=== PATIENT | female | born 1975 | race American Indian/Alaskan Native ===

== ENCOUNTER 2018-01-18 04:11 | Emergency (ER) | payer SELFPAY ==
--- NOTE | 2018-01-18 05:38 | Cat Scan Report ---
FINAL REPORT EXAM: CT HEAD/BRAIN WO CON HISTORY: headache s/p injury TECHNIQUE: CT imaging acquired through the head without intravenous contrast. Transaxial reformations are provided. PRIORS: None. FINDINGS: The ventricles, cisterns and sulci are normal. No intraparenchymal or extra-axial mass, hemorrhage, or mass effect. Munoz and white-matter differentiation is normal. Normal spherical shape of the globes. Paranasal sinuses and mastoid air cells are clear. No skull or facial fracture visualized. IMPRESSION: No acute intracranial abnormality.
[2018-01-18] MEDS ORDERED: TORADOL IM ONE (07:27)
--- NOTE | 2018-01-18 07:29 | Emergency Department Report ---
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 She states that she fell. She said they took her to the clinic at her job site and gave her some pain medication but she still having headache and she would like to be checked out. She is reporting headache to the back of her head. Denies any loss of consciousness. Denies any restriction in movement to her right shoulder but reports she is having pain right shoulder 6 out of 10 in headache 8 out of 10. She is also complaining there is a small cut to the back of her scalp. Denies any dizziness , nausea or vomiting, blurred vision. Timing/Duration: 24 hours, constant, waxing and waning Quality: severe, achy, throbbing Head Injury Location: occipital, other (right shoulder) Recent Head Trauma: occasional headaches Modifying Factors: improves with: rest Associated Symptoms: other (right shoulder pain). denies: confusion, fatigue, facial pain, fever/chills, flushing, loss of consciousness, nausea/vomiting, nasal congestion, nasal drainage, numbness in legs/feet, rash, seizures, sinus infection, stiff neck, vision changes, weakness Allergies/Adverse Reactions: Allergies No Known Allergies Allergy (Unverified 10/25/15 08:59) Home Medications: Ambulatory Orders Amoxicillin [Trimox CAP] 500 mg PO Q12HR #20 capsule 10/25/15 Brompheniramine/Pseudoephed/Dm [Bromfed Dm Cough Syrup] 10 ml PO Q4HR #120 ml Acetaminophen/Codeine [Tylenol /Codeine # 3 tab] 1 tab PO Q6H PRN #12 tab Ibuprofen [Motrin] 600 mg PO Q8H PRN #15 tablet 01/18/18 ED Review of Systems ROS: Stated complaint: HEAD PAIN Other details as noted in HPI Constitutional: denies: chills, fever Eyes: denies: vision change ENT: denies: epistaxis Respiratory: denies: cough, shortness of breath, SOB with exertion, SOB at rest , stridor, wheezing Cardiovascular: denies: chest pain, palpitations, syncope Gastrointestinal: denies: abdominal pain, nausea, vomiting, diarrhea Musculoskeletal: denies: back pain, arthralgia Skin: other (cut to the back of her head). denies: rash, lesions Neurological: denies: headache, numbness, paresthesias, abnormal gait, vertigo ED Past Medical Hx - Past Medical History Previous Medical History?: Yes Additional medical history: heart murmur, Vaginal delivery x 3 - Surgical History Past Surgical History?: No - Family History Family history: hypertension - Social History Smoking Status: Never Smoker Substance Use Type: None - Medications Home Medications: Home Medications Medication Instructions Recorded Confirmed Last Taken Type Amoxicillin [Trimox CAP] 500 mg PO Q12HR #20 capsule 10/25/15 Unknown Rx Brompheniramine/Pseudoephed/Dm 10 ml PO Q4HR #120 ml 10/25/15 Unknown Rx [Bromfed Dm Cough Syrup] Acetaminophen/Codeine [Tylenol 1 tab PO Q6H PRN #12 tab 01/18/18 Unknown Rx /Codeine # 3 tab] Ibuprofen [Motrin] 600 mg PO Q8H PRN #15 tablet 01/18/18 Unknown Rx ED Physical Exam - General Limitations: No Limitations General appearance: alert, in no apparent distress - Head Head exam: Present: atraumatic, normocephalic, normal inspection - Expanded Head Exam Expanded Head exam: Present: abrasion (occipital scalp). Absent: laceration, contusion, hematoma, racoon eyes, connelly's sign, general tenderness, tenderness of temporal artery, CSF rhinorrhea, CSF otorrhea - Eye Eye exam: Present: normal appearance, PERRL, EOMI. Absent: nystagmus, periorbital swelling, periorbital tenderness Pupils: Present: normal accommodation - ENT ENT exam: Present: normal exam, normal orophraynx, mucous membranes moist, TM's normal bilaterally, normal external ear exam - Neck Neck exam: Present: normal inspection, tenderness, full ROM, other (no C-spine tenderness). Absent: meningismus, lymphadenopathy - Respiratory Respiratory exam: Present: normal lung sounds bilaterally. Absent: respiratory distress, chest wall tenderness - Cardiovascular Cardiovascular Exam: Present: regular rate, normal rhythm, normal heart sounds, gallop. Absent: systolic murmur, diastolic murmur - GI/Abdominal GI/Abdominal exam: Present: soft, normal bowel sounds. Absent: tenderness, rigid - Extremities Exam Extremities exam: Present: normal inspection, full ROM, normal capillary refill , other (patient with full range of motion to both shoulder but she reports pain with palpation and movement of her right shoulder. No clubbing, cyanosis or edema to extremities. No neurovascular compromise. +2 pulses to all extremities. No shoulder deformity or swelling.). Absent: tenderness, pedal edema, joint swelling, calf tenderness - Back Exam Back exam: Present: normal inspection, full ROM, other (ambulates without any difficulties). Absent: tenderness, CVA tenderness (R), CVA tenderness (L), muscle spasm, paraspinal tenderness, vertebral tenderness, rash noted - Neurological Exam Neurological exam: Present: alert, oriented X3, normal gait, reflexes normal. Absent: motor sensory deficit - Expanded Neurological Exam Expanded Neurological exam: Absent: innattentive, memory loss-remote event, ataxia, receptive aphasia, expressive aphasia, total aphasia, tremor Patient oriented to: Present: person, place, time Speech: Present: fluid speech Cranial nerves: EOM's Intact: Normal, Gag Reflex: Normal, Tongue Deviation: Normal, Nystagmus: Normal, Facial Sensation: Normal Cerebellar function: Romberg: Normal Upper motor neuron: Pronator Drift: Normal, Sensory Extinction: Normal Sensory exam: Upper Extremity Light Touch: Normal, Upper Extremity Pin Prick: Normal, Upper Extremity Temperature: Normal, UE 2 Point Discrimination: Normal, Lower Extremity Light Touch: Normal, Lower Extremity Pin Prick: Normal, Lower Extremity Temperature: Normal, LE 2 Point Discrimination: Normal Motor strength exam: RUE: 5, LUE: 5, RLE: 5, LLE: 5 DTR: bicep (R): 2+, bicep (L): 2+, tricep (R): 2+, tricep (L): 2+, knee (R): 2+ , knee (L): 2+, ankle (R): 2+, ankle (L): 2+ Best Eye Response ([place]): (4) open spontaneously Best Motor Response ([place]): (6) obeys commands Best Verbal Response ([place]): (5) oriented [place] Total: 15 - Psychiatric Psychiatric exam: Present: normal affect, normal mood - Skin Skin exam: Present: warm, dry, intact, normal color, rash, abrasion (very superficial abrasion to occipital scalp. No hematoma.) ED Course Vital Signs 01/18/18 01/18/18 04:42 08:56 Temperature 98.1 F 97.9 F Pulse Rate 80 59 L Respiratory 18 18 Rate Blood Pressure 146/71 Blood Pressure 97/75 [Left] O2 Sat by Pulse 100 100 Oximetry - Reevaluation(s) Reevaluation #1: 01/18/18 09:04 She received Tylenol 975 mg by mouth and she said her tetanus shot is up-to- date. Pain is better after Tylenol. ED Medical Decision Making - Radiology Data Radiology results: report reviewed CT scan head/brain shows no acute findings. Dictated by radiologist Patient: ADAMS FRANK MR#: [id number] : 1975 Acct:[id number] Age/Sex: 42 / F ADM Date: 01/18/18 Loc: ED Attending Dr: Ordering Physician: HENOK VENEGAS Date of Service: 01/18/18 Procedure(s): CT head/brain wo con Accession Number(s): [id number] cc: HENOK VENEGAS FINAL REPORT EXAM: CT HEAD/BRAIN WO CON HISTORY: headache s/p injury TECHNIQUE: CT imaging acquired through the head without intravenous contrast. Transaxial reformations are provided. PRIORS: None. FINDINGS: The ventricles, cisterns and sulci are normal. No intraparenchymal or extra-axial mass, hemorrhage, or mass effect. Munoz and white-matter differentiation is normal. Normal spherical shape of the globes. Paranasal sinuses and mastoid air cells are clear. No skull or facial fracture visualized. IMPRESSION: No acute intracranial abnormality. Transcribed By: MB Dictated By: VITO BRICE MD Electronically Authenticated By: VITO BRICE MD Signed Date/Time: 01/18/18 0534 Patient: ADAMS FRANK MR#: [id number] : 1975 Acct:[id number] Age/Sex: 42 / F ADM Date: 01/18/18 Loc: ED Attending Dr: Ordering Physician: HENOK RODRIGUEZ Date of Service: 01/18/18 Procedure(s): XR shoulder 2+V RT Accession Number(s): [id number] cc: HENOK RODRIGUEZ Fluoro Time In Minutes: Right shoulder: Injury, pain. There is no fracture and no dislocation. The joint spaces preserved. There is mild irregularity of the bony contour along the greater tuberosity probably of no significance. No soft tissue findings. Impression: No acute finding. Transcribed By: HI Dictated By: SONJA TELLEZ MD Electronically Authenticated By: SONJA TELLEZ MD Signed Date/Time: 01/18/18738 DD/ 7 TD/TT: 01/18/18738 DD/ 3 TD/TT: 01/18/18533 - Medical Decision Making This is a 42-year-old female well-nourished well-developed here reported that she had an accident at work where she got hit in the head yesterday with part of a gregory and she fell and injured her right shoulder. She is complaining of headache and right shoulder pain with bruising to the back of her head. Patient says she was seen by the clinical work and he gave her some pain medication but she woke up this morning and she was in severe pain. This patient was seen by myself and examined and she patient has superficial abrasion to occipital scalp without any other injury. She has intact neurological system and her neck exam is normal. Patient shoulder exam revealed no deformity, she has full range of motion without any bony tenderness but she does have superficial tenderness. No swelling bruising or contusion noted to her right shoulder. X-ray of right shoulder was then and CT scan of the head and brain was done without contrast and these were dictated by radiologist shows no acute findings. This was communicated by palpation and she voiced understanding of result. A/P 1:posttraumatic headache after head injury-patient given Tylenol 975 mg which relieved her pain. CT scan of the head and brain revealed no acute findings. 2: Minor head injury without loss of consciousness-patient to follow up with her primary care physician tomorrow for 24-hour neuro status post head injury. Patient had x-ray of her right shoulder which revealed no acute findings 3: Abrasion scalp-she said her tetanus vaccine is up-to-date. And ears are scabbed over. 4 accident of fall: Patient is stable Patient educated on medication, Rice therapy, diagnosis, x-ray reports and treatment plan and if she continues to have pain she needs to follow-up with orthopedic doctor. Patient discharged home in stable condition to follow up with orthopedic doctor in 2-3 days and/or to return to the emergency room if her condition worsens. Her vital signs and she is afebrile and was given prescription for Tylenol 3 and Motrin. - Differential Diagnosis ICH, skull fracture, headache status post head injury, shoulder fx, MSK Critical care attestation.: If time is entered above; I have spent that time in minutes in the direct care of this critically ill patient, excluding procedure time. ED Disposition Clinical Impression: Posttraumatic headache Qualifiers: Headache chronicity pattern: acute headache Intractability: not intractable Qualified Code(s): G44.319 - Acute post-traumatic headache, not intractable Minor head injury without loss of consciousness Qualifiers: Encounter type: initial encounter Qualified Code(s): S09.90XA - Unspecified injury of head, initial encounter Right shoulder pain Qualifiers: Chronicity: acute Qualified Code(s): M25.511 - Pain in right shoulder Scalp abrasion Qualifiers: Encounter type: initial encounter Qualified Code(s): S00.01XA - Abrasion of scalp, initial encounter Disposition: TO HOME OR SELFCARE Is pt being admited?: No Does the pt Need Aspirin: No Condition: Stable Instructions: Abrasion (ED), Acute Headache (ED), Arthralgia (ED), Minor Head Injury (ED) Additional Instructions: Follow-up with orthopedic doctor in 4 days. 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
[2018-01-18] MEDS ORDERED: TYLENOL PO ONE (07:33)
--- NOTE | 2018-01-18 08:01 | XRay Report ---
Right shoulder: Injury, pain. There is no fracture and no dislocation. The joint spaces preserved. There is mild irregularity of the bony contour along the greater tuberosity probably of no significance. No soft tissue findings. Impression: No acute finding.
[2018-01-18 08:57] VITALS: BP 97/75
== END 2018-01-18 09:17 | disposition home or self-care (01) ==
LOC: ED 04:11
DX: S00.01XA Abrasion of scalp, initial encounter (principal); G44.319 Acute post-traumatic headache, not intractable; M25.511 Pain in right shoulder; W18.30XA Fall on same level, unspecified, initial encounter; Y93.89 Activity, other specified; Y92.89 Other specified places as the place of occurrence of the external cause; Y99.8 Other external cause status
CPT/HCPCS: 70450; 73030; 99284; J1885

== ENCOUNTER 2018-01-21 18:54 | Emergency (ER) | payer OTHER ==
[2018-01-21 19:03] VITALS: BP 170/77
[2018-01-21] MEDS ORDERED: MOTRIN PO ONE (20:12)
--- NOTE | 2018-01-21 20:12 | Emergency Department Report ---
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 Patient reports that she was seen here in the emergency room on 01/18/2018 and had a CAT scan done N prescription for ibuprofen and Tylenol No. 3. Patient reports that she does not take the Tylenol No. 3 as she is concerned for her job. Patient denies any nausea no vomiting but does admit to a headache that has gotten worse and blurred vision over the past few days. Patient denies any nausea and no unsteady gait. Patient reports no past medical history currently takes no medications on a daily basis and has no known drug allergies. Quality: severe Head Injury Location: occipital Associated Symptoms: vision changes Allergies/Adverse Reactions: Allergies No Known Allergies Allergy (Unverified 10/25/15 08:59) Home Medications: Ambulatory Orders Amoxicillin [Trimox CAP] 500 mg PO Q12HR #20 capsule 10/25/15 Brompheniramine/Pseudoephed/Dm [Bromfed Dm Cough Syrup] 10 ml PO Q4HR #120 ml Acetaminophen/Codeine [Tylenol /Codeine # 3 tab] 1 tab PO Q6H PRN #12 tab Ibuprofen [Motrin] 600 mg PO Q8H PRN #15 tablet 01/18/18 Ibuprofen [Motrin 800 MG tab] 800 mg PO Q8HR PRN #30 tablet 01/21/18 ED Review of Systems ROS: Stated complaint: SEVERE HEADACHE Other details as noted in HPI Constitutional: denies: chills, fever Eyes: denies: eye pain, eye discharge, vision change Gastrointestinal: denies: nausea, vomiting Genitourinary: denies: urgency, dysuria, discharge Musculoskeletal: denies: back pain, joint swelling, arthralgia Neurological: headache Psychiatric: denies: anxiety, depression Hematological/Lymphatic: denies: easy bleeding, easy bruising ED Past Medical Hx - Past Medical History Previous Medical History?: Yes Additional medical history: heart murmur, Vaginal delivery x 3 - Surgical History Past Surgical History?: No - Social History Smoking Status: Never Smoker Substance Use Type: None - Medications Home Medications: Home Medications Medication Instructions Recorded Confirmed Last Taken Type Amoxicillin [Trimox CAP] 500 mg PO Q12HR #20 capsule 10/25/15 Unknown Rx Brompheniramine/Pseudoephed/Dm 10 ml PO Q4HR #120 ml 10/25/15 Unknown Rx [Bromfed Dm Cough Syrup] Acetaminophen/Codeine [Tylenol 1 tab PO Q6H PRN #12 tab 01/18/18 Unknown Rx /Codeine # 3 tab] Ibuprofen [Motrin] 600 mg PO Q8H PRN #15 tablet 01/18/18 Unknown Rx Ibuprofen [Motrin 800 MG tab] 800 mg PO Q8HR PRN #30 tablet 01/21/18 Unknown Rx ED Physical Exam - General Limitations: No Limitations General appearance: alert, in no apparent distress - Head Head exam: Present: atraumatic, normocephalic - Eye Eye exam: Present: normal appearance, EOMI - ENT ENT exam: Present: mucous membranes moist - Neck Neck exam: Present: tenderness (at the base of the skull), full ROM. Absent: lymphadenopathy - Respiratory Respiratory exam: Present: normal lung sounds bilaterally. Absent: respiratory distress - Cardiovascular Cardiovascular Exam: Present: regular rate, normal rhythm. Absent: systolic murmur, diastolic murmur, rubs, gallop - Neurological Exam Neurological exam: Present: alert, oriented X3 - Psychiatric Psychiatric exam: Present: normal affect, normal mood - Skin Skin exam: Present: warm, dry, intact, normal color. Absent: rash ED Course Vital Signs 01/21/18 18:59 Temperature 98.7 F Pulse Rate 92 H Respiratory 18 Rate Blood Pressure 170/77 O2 Sat by Pulse 100 Oximetry - Reevaluation(s) Reevaluation #1: 01/21/18 21:19 Patient reports that the ibuprofen 800 mg helped a lot requesting a prescription for that for discharge. ED Medical Decision Making - Radiology Data Radiology results: report reviewed FINDINGS: Brain: Brain density appears normal. No evidence of intracranial hemorrhage. No parenchymal hemorrhage, mass lesions or mass effect are seen. No abnormal extraxial fluid collects or masses are seen. Ventricles: Ventricles are normal size and are midline. Bone Windows: No evidence of skull fracture. Paranasal sinuses: Visualized portions appear clear. Mastoid air cells: Clear IMPRESSION: Negative exam Transcribed By: DFN Dictated By: DL GRACE MD Electronically Authenticated By: DL GRACE MD Signed Date/Time: 01/21/182058 DD/ 58 TD/TT: 01/21/182058 FINDINGS: No fracture or subluxation is seen. The prevertebral soft tissues appear normal. Posterior elements are intact. There is mild facet arthritis visualized in the upper cervical spine. Facets otherwise unremarkable. There is mild disc space narrowing C4-5, C5-6. Small anterior osteophytic spurs are present C5-6 and C6-7. No focal disc herniation or spinal stenosis is visualized. IMPRESSION: There is mild facet arthritis and degenerative disc disease. No fracture or subluxation is seen.. Transcribed By: DFN Dictated By: DL GRACE MD Electronically Authenticated By: DL GRACE MD Signed Date/Time: 01/21/182109 DD/ 09 TD/TT: 01/21/182109 - Medical Decision Making Patient has been evaluated by this provider in fast track. Review of chart shows the patient was seen here on the [address] scan was negative We'll order a repeat CT scan of the head and cervical without contrast. Patient declines anything stronger than ibuprofen I will give her ibuprofen 800 mg by mouth now Ordered a visual acuity Critical care attestation.: If time is entered above; I have spent that time in minutes in the direct care of this critically ill patient, excluding procedure time. ED Disposition Clinical Impression: Posttraumatic headache Qualifiers: Headache chronicity pattern: acute headache Intractability: intractable Qualified Code(s): G44.311 - Acute post-traumatic headache, intractable Disposition: DC-01 TO HOME OR SELFCARE Is pt being admited?: No Does the pt Need Aspirin: No Condition: Stable Instructions: Acute Headache (ED) Additional Instructions: Please take pain medication as prescribed. If symptoms persist or gets worse please follow up with her primary care provider. Prescriptions: Ibuprofen [Motrin 800 MG tab] 800 mg PO Q8HR PRN #30 tablet PRN Reason: Pain Referrals: PRIMARY CARE, [Primary Care Provider] - 3-5 Days Forms: Work/School Release Form(ED), Accompanied Note
--- NOTE | 2018-01-21 21:03 | Cat Scan Report ---
FINAL REPORT PROCEDURE: CT HEAD/BRAIN WO CON TECHNIQUE: Computerized tomography of the head was performed without contrast material. HISTORY: trauma to head with worsening headache COMPARISON: Prior CT scan of the brain 01/18/2018 FINDINGS: Brain: Brain density appears normal. No evidence of intracranial hemorrhage. No parenchymal hemorrhage, mass lesions or mass effect are seen. No abnormal extraxial fluid collects or masses are seen. Ventricles: Ventricles are normal size and are midline. Bone Windows: No evidence of skull fracture. Paranasal sinuses: Visualized portions appear clear. Mastoid air cells: Clear IMPRESSION: Negative exam
--- NOTE | 2018-01-21 21:14 | Cat Scan Report ---
FINAL REPORT PROCEDURE: CT CERVICAL SPINE WO CON TECHNIQUE: Computerized tomography of the cervical spine was performed from the skull base to T1 without contrast material. HISTORY: trauma to head with worsening headache COMPARISON: No prior studies are available for comparison. FINDINGS: No fracture or subluxation is seen. The prevertebral soft tissues appear normal. Posterior elements are intact. There is mild facet arthritis visualized in the upper cervical spine. Facets otherwise unremarkable. There is mild disc space narrowing C4-5, C5-6. Small anterior osteophytic spurs are present C5-6 and C6-7. No focal disc herniation or spinal stenosis is visualized. IMPRESSION: There is mild facet arthritis and degenerative disc disease. No fracture or subluxation is seen..
== END 2018-01-21 21:36 | disposition home or self-care (01) ==
LOC: ED 18:54
DX: G44.311 Acute post-traumatic headache, intractable (principal); W22.8XXA Striking against or struck by other objects, initial encounter; Y93.89 Activity, other specified; Y99.8 Other external cause status; Y92.89 Other specified places as the place of occurrence of the external cause
CPT/HCPCS: 70450; 72125; 99283